=== PATIENT | female | born 1990 | race Hispanic/Latino ===

== ENCOUNTER 2025-10-06 11:47 | Emergency (ER) | payer SELFPAY ==
[2025-10-06] VITALS (17 sets, daily range): BP systolic 127–175; BP diastolic 68–107; PULSE 70–137; RESP 15–39; TEMP 36.9; O2SAT 92–99
--- NOTE | ~2025-10-06 | CT_ITS ---
EXAMINATION: CT brain wo con COMPARISON: None HISTORY: seizure TECHNIQUE: Axial images were obtained through the brain without IV contrast. CT scan performed using dose optimization techniques including the following automated exposure control; adjustment of mA and/or kV; use of iterative reconstruction technique. Automatic exposure control was used to reduce radiation dose. Permanent radiation dose record is archived to PACS. FINDINGS: No acute infarct or parenchymal hemorrhage. No abnormal mass or mass effect. No midline shift. No extra-axial fluid collections. No hydrocephalus. . Mastoid air cells unremarkable. Sinuses and orbits unremarkable. No acute fracture. No significant facial or scalp soft tissue swelling evident. No radiopaque foreign body is seen. Impression: 1.No acute intracranial abnormality. Reviewed, dictated and finalized at location [facility] Impression: 1.No acute intracranial abnormality.
--- NOTE | 2025-10-06 12:16 | PC.NURSE ---
THis RN called into patient room for seizure like activity; patient's was yelling that the patient could not see. patient was actively seizing. medications were verbally ordered and brought to bedside. second IV site established.
--- NOTE | 2025-10-06 12:17 | ED.GENADULT ---
HPI - General Adult General Chief complaint: Unspecified Stated complaint: possible seizure - post 2weeks Time Seen by Provider: 10/06/25 12:06 History of Present Illness HPI narrative: 35 old female with no prior history of seizure disorder presents emergency department for evaluation after having a seizure prior to arrival. Patient did have a delivery at [facility] approximately 1 week ago. Patient's states that the patient had a tonic-clonic seizure just prior to arrival, patient did arrive to the emergency department by EMS. Related Data Allergies Allergy/AdvReac Type Severity Reaction Status Date / Time No Known Allergies Allergy Verified 10/06/25 12:17 Review of Systems Review of Systems: All systems reviewed & are unremarkable except as noted in HPI and below Exam Narrative: APPEARANCE: Well appearing, no pain, no distress, well-nourished. HEAD: normocephalic, atraumatic. EYES: PERRLA/EOMI, conjunctivae clear. NOSE: Normal no drainage EARS:TMS clear with good light reflex. THROAT: Pharynx clear, no exudate. Mouth: Bite whittaker to tone bilaterally NECK: Supple. No adenopathy, no masses. RESPIRATORY: Airway patent, respirations nonlabored. Clear to auscultation bilaterally, no rales, rhonchi, wheezing. CARDIOVASCULAR: Regular rate and rhythm without murmurs rubs or gallops. ABDOMINAL: Soft, nontender, nondistended, normal bowel sounds MUSCULOSKELETAL: Moves all extremities. Strength/ROM intact, No edema, No calf tenderness. NEURO: Alert. Cranial nerves II through XII intact. Good gait. Good coordination SKIN: Warm, dry. Normal Color Course Vital Signs Vital signs: Vital Signs Temperature 98.5 F 10/06/25 11:43 Pulse Rate 116 H 10/06/25 11:43 Respiratory Rate 20 10/06/25 11:43 Blood Pressure 165/107 H 10/06/25 11:43 Pulse Oximetry 98 10/06/25 11:43 Oxygen Delivery Room Air 10/06/25 11:43 Temperature 98.5 F 10/06/25 11:43 Pulse Rate 76 10/06/25 15:16 Respiratory Rate 25 H 10/06/25 15:16 Blood Pressure 141/85 H 10/06/25 15:16 Pulse Oximetry 97 10/06/25 15:16 Oxygen Delivery Nasal Cannula 10/06/25 12:31 Oxygen Flow Rate 3 10/06/25 12:31 Medical Decision Making MDM Narrative Medical decision making narrative: Thirty 5-year-old female presents emergency department for evaluation for new onset of seizure. Patient had a seizure prior to arrival and had a seizure shortly after arrival to the emergency department. prior to the patient's 2nd seizure she was complaining of some visual changes. Second seizure was witnessed and was approximately 3 minutes in duration. Patient did bite her tongue during this. Patient was treated with IV Versed and initially with 2 g of IV Mag. Additional 2 g was given within a 15 minute. This did help with the patient's blood pressure. Patient's blood pressure on initial arrival to the emergency department is 165/107 and did improved to 127 systolic. Patient's blood pressure did begin to slowly increase and she was treated with additional labetalol and ultimately started on a Mag drip at 2 grams/hour. Patient was afebrile with no leukocytosis and hemoglobin 11.8 with normal platelet count. Patient did have mild elevation of AST ALT alk-phos and elevated lactate dehydrogenase. UA was positive for proteinuria. Head CT was negative for acute intracranial abnormality. I did discuss the case with [facility] and the [facility] team and patient was accepted for transport. [facility] provided transport. Patient and family are updated on the results of the workup and plan for transfer. At time of transfer patient was alert oriented and back to her baseline and all visual symptoms had resolved. Critical Care Procedure Note Authorized and Performed by: Angel Carr Total critical care time: Approximately 36 minutes Due to a high probability of clinically significant, life threatening deterioration, the patient required my highest level of preparedness to intervene emergently and I personally spent this critical care time directly and personally managing the patient. This critical care time included obtaining a history; examining the patient; pulse oximetry; ordering and review of studies; arranging urgent treatment with development of a management plan; evaluation of patient's response to treatment; frequent reassessment; and, discussions with other providers. This critical care time was performed to assess and manage the high probability of imminent, life-threatening deterioration that could result in multi-organ failure. It was exclusive of separately billable procedures and treating other patients and teaching time. Please see MDM section and the rest of the note for further information on patient assessment and treatment. Differential Diagnosis Differential Diagnosis: Subdural hematoma, subarachnoid hemorrhage, eclampsia, seizure, helped neuro Vital Signs Vital Signs: Vital Signs Temperature 98.5 F 10/06/25 11:43 Pulse Rate 116 H 10/06/25 11:43 Respiratory Rate 20 10/06/25 11:43 Blood Pressure 165/107 H 10/06/25 11:43 Pulse Oximetry 98 10/06/25 11:43 Oxygen Delivery Room Air 10/06/25 11:43 Temperature 98.5 F 10/06/25 11:43 Pulse Rate 76 10/06/25 15:16 Respiratory Rate 25 H 10/06/25 15:16 Blood Pressure 141/85 H 10/06/25 15:16 Pulse Oximetry 97 10/06/25 15:16 Oxygen Delivery Nasal Cannula 10/06/25 12:31 Oxygen Flow Rate 3 10/06/25 12:31 Lab Data Lab results reviewed: Yes I reviewed the patient's lab results. 10/06/25 12:20 10/06/25 12:20 Labs: Lab Results 10/06/25 10/06/25 10/06/25 Range/Units 12:20 12:20 13:13 WBC 9.2 (4.5-10.0) K/mm3 RBC 4.67 (4.2-5.4) M/mm3 Hgb 11.8 L (12.0-15.0) g/dL Hct 39.0 (37.0-47.0) % MCV 83.5 (80-100) fl MCH 25.3 L (26-34) pg MCHC 30.3 L (32-36) g/dl RDW 15.1 H (11.5-14.5) % Plt Count 354 (150-375) k/mm3 MPV 11.7 H (7.4-10.4) fl Immature Gran % (Auto) 2.6 H (0-0.5) % Neut % (Auto) 64.2 (45.5-73.1) % Lymph % (Auto) 27.8 (18.3-44.2) % [place] % (Auto) 3.9 (2.6-8.5) % Eos % (Auto) 1.0 (0-4.4) % Baso % (Auto) 0.5 (0.2-1.2) % Lymph # (Auto) 2.55 (0.9-3.2) K/mm3 [place] # (Auto) 0.4 (0.1-0.6) K/mm3 Eos # (Auto) 0.1 (0-0.3) K/mm3 Baso # (Auto) 0.1 (0.0-0.1) K/mm3 Abs Immat Gran (auto) 0.24 H (0.00-0.031) K/mm3 Absolute Neuts (auto) 5.9 (1.3-6.7) K/mm3 Absolute Nucleated RBC 0.020 H (0.0-0.012) K/mm3 Nucleated RBC % 0.2 (0.0-0.2) % PT 13.6 (11.1-14.7) Seconds INR 1.0 APTT 27.9 (22.3-36.8) Seconds Sodium 139 (137-145) mmol/L Potassium 3.8 (3.4-5.0) mmol/L Chloride 108 H (98-107) mmol/L Carbon Dioxide 14 L (22-30) mmol/L Anion Gap 17 H (4-12) mmol/L BUN 11 (7-17) mg/dL Creatinine 0.68 L (0.7-1.0) mg/dL Estim Creat Clear Calc 111 ml/min Estimated GFR > 60 (59 - ) Glucose 78 (65-110) mg/dL Calcium 9.0 (8.4-10.2) mg/dL Magnesium 2.2 Cancelled (1.6-2.3) mg/dL Total Bilirubin 0.5 (0.2-1.3) mg/dL AST 49 H (14-36) U/L ALT 77 H (6-35) U/L Alkaline Phosphatase 200 H (38-126) U/L Lactate Dehydrogenase 299 H (120-246) U/L Total Protein 7.5 (6.3-8.2) g/dL Albumin 4.2 (3.5-5.1) g/dL TSH (Reflex) 2.590 (0.465-4.68) uIU/mL Urine Color Yellow (Yellow) Urine Appearance Clear (Clear) Urine pH 6.0 (5.0-9.0) Ur Specific [place] 1.017 (1.001-1.035) Urine Protein 1+ H (Negative) mg/dL Urine Glucose (UA) Negative (Negative) mg/dL Urine Ketones 2+ H (Negative) mg/dL Ur Blood (Man) Negative (Negative) Urine Nitrate Negative (Negative) Urine Bilirubin Negative (Negative) Urine Urobilinogen 1.0 (<2.0) mg/dL Leukocyte Esterase Rfl Negative (Negative) TANYA/UL Urine RBC 0-2 (0-2) /hpf Urine WBC 0-5 (0-3) /hpf Ur Squamous Epith Cells None seen (Few) /hpf Urine Bacteria None seen /hpf Urine Casts 0-2 Critical Care Time Critical Care Time Critical Care Time: Yes Total Critical Care Time: 36 Discharge Plan Discharge Clinical Impression: Eclampsia, Seizure Patient Disposition: Acute Care Hospital Condition: Critical Patient Language: [place] Follow-up/Referrals: PHYSICIAN,CIGARETTE TESTER [Primary Care Provider, Internal Medicine]
[2025-10-06] MEDS: MAGNESIUM SULF 2 GM/WATER 50ML 2 GM/50 ML BAG IVPB (12:18)
[2025-10-06] MEDS: MIDAZOLAM HCL (*CRX) 2 MG/2 ML VIAL IV PUSH (12:18)
[2025-10-06] MEDS: MAGNESIUM SULF 2 GM/WATER 50ML 2 GM/50 ML BAG 300 GM (12:28)
[2025-10-06] MEDS: LACTATED RINGERS 1,000 ML 999 ML IV CONT (12:29)
[2025-10-06 12:33] LABS: Hematocrit 39.0 % (37.0-47.0); Hemoglobin 11.8 g/dL (12.0-15.0); Immature Granulocyte Percent A 2.6 % (0-0.5); Lymphocytes Absolute Auto 2.55 K/mm3 (0.9-3.2); Mean Corpuscular HGB Conc 30.3 g/dl (32-36); Mean Corpuscular Hemoglobin 25.3 pg (26-34); Mean Corpuscular Volume 83.5 fl (80-100); Nucleated Red Blood Cells Absolute Auto 0.020 K/mm3 (0.0-0.012); Nucleated Red Blood Cells Perc 0.2 % (0.0-0.2); Platelet Count Result 354 k/mm3 (150-375); Red Blood Count 4.67 M/mm3 (4.2-5.4); White Blood Count 9.2 K/mm3 (4.5-10.0)
[2025-10-06 12:43] LABS: Alanine Aminotransferase 77 U/L (6-35); Albumin Level 4.2 g/dL (3.5-5.1); Alkaline Phosphatase 200 U/L (38-126); Anion Gap 17 mmol/L (4-12); Aspartate Amino Transferase 49 U/L (14-36); Bilirubin,Total 0.5 mg/dL (0.2-1.3); Blood Urea Nitrogen 11 mg/dL (7-17); Calcium 9.0 mg/dL (8.4-10.2); Carbon Dioxide 14 mmol/L (22-30); Chloride 108 mmol/L (98-107); Estimated CRCL calculation 111 ml/min; Estimated Glomerular Filt Rate > 60; Glucose 78 mg/dL (65-110); Magnesium 2.2 mg/dL (1.6-2.3); Potassium 3.8 mmol/L (3.4-5.0); Sodium 139 mmol/L (137-145); Total Protein 7.5 g/dL (6.3-8.2)
[2025-10-06 12:45] LABS: INR 1.0; Partial Thromboplastin Time 27.9 Seconds (22.3-36.8); Prothrombin Time 13.6 Seconds (11.1-14.7)
[2025-10-06 13:33] LABS: Thyroid Stimulating Hormone Reflex 2.590 uIU/mL (0.465-4.68)
[2025-10-06 13:41] LABS: Add Urine Microscopic? YES; Appearance Urine Clear (Clear); Glucose Urine UA Negative (Negative); Leukocyte Esterase Ur Negative LEU/UL (Negative); Nitrate Urine Negative (Negative); Non Pathogenic Casts 0-2; Specific Grav Ur 1.017 (1.001-1.035)
[2025-10-06] MEDS: HYDROmorphone HCL INJ (*CRX) 1 MG/ML SYR 0.5 MG IV PUSH (13:47)
--- NOTE | 2025-10-06 13:47 | ECG_ITS ---
Test Date: 2025-10-06 11:58:54 Measurements Intervals [place] Rate: 117 P: 60 RI: 136 QRS: 51 QRSD: 87 T: 55 QT: 296 QTc: 414 Interpretive Statements SINUS TACHYCARDIA POSSIBLE LEFT ATRIAL ENLARGEMENT [-0.1mV P-WAVE IN V1/V2] INDETERMINATE AXIS POSSIBLE RIGHT VENTRICULAR CONDUCTION DELAY [RSR (QR) IN V1/V2] MODERATE ST DEPRESSION [0.05+ mV ST DEPRESSION] ABNORMAL ECG No previous ECG available for comparison Electronically Signed On 10-06-2025 17:12:26 [employer] by Rayshawn Pack M.D.
[2025-10-06] MEDS: MAGNESIUM SULF 20GM/WATER500ML 500 ML 50 MG IV CONT (14:07)
== END 2025-10-06 15:49 | disposition short-term general hospital (02) ==
PROVIDERS: Emergency Provider Emergency Medicine
DX: O15.2 Eclampsia complicating the puerperium (principal); R56.9 Unspecified convulsions
CPT/HCPCS: 36415; 70450; 80053; 81001; 83615; 83735; 84443; 85025; 85610; 85730; 93005; 96365; 96375; 99285; A9270; J1171; J2250; J3475; J7120